=== PATIENT | female | born 1975 | race Caucasian/White ===

== ENCOUNTER 2018-06-08 20:27 | Emergency (ER) | payer OTHER ==
[~2018-06-08] VITALS: Ht 177.8 cm; Wt 99.8 kg
[~2018-06-08 20:27] MED LIST: ABILIFY15 MG PO; AMOXICILLIN875 MG PO; ATIVAN0.5 MG; ATIVAN1 MG PO; AUGMENTIN 875875 MG PO; BACLOFEN 10 MG10 MG PO; BACLOFEN 10MG T10 M1 PO; BENZTROPINE MES1 MG PO; CLARITIN10 MG PO; COLACE100 MG PO; COMBIVENT INH; CYCLOBENZAPRINE10 MG PO; CYMBALTA60 MG PO; DESYREL PO; DESYREL100 MG PO; DESYREL50 MG PO; DILAUDID 4 MG TA4 M1 PO; DILAUDID4 MG PO; ENABLEX15 MG PO; ENOXAPARIN40 MG/0.1 SUBQ; FLEXERIL PO; FLONASE 0.05%50 MCG INH; FUROSEMIDE 40 M40 M1 PO; GABAPENTIN100 MG PO; GLYCOLAX17 GM PO; GOLYTELY4000 ML PO; HYDROCODONE-AP1 EAC6 PO; IBUPROFEN 800800 M1 PO; INDOMETHACIN 2525 MG PO; K-DUR 20 MEQ T20 MEQ PO; KEFLEX500 MG PO; KEPPRA 500 MG500 M1 PO; KLOR-CON 1010 MEQ PO; LACTULOSE10 GM/152; LASIX 40 MG TAB40 M1 PO; LEVOFLOXACIN750 MG PO; LIORESAL 10 MG10 MG PO; MILK OF MA2400 MG/10 PO; MINIPRESS5 MG PO; MORPHINE SULFAT10 M1 PO; MORPHINE SULFAT30 M1 PO; MS CONTIN 30 MG30 M1 PO; MUCINEX DM; NEURONTIN 300300 M1 PO; OXYMORPHONE HCL15 MG PO; PERCOCET 5-3251 EACH PO; PHENERGAN 25 MG25 M1 PO; PRAZOSIN HCL2 MG PO; PRAZOSIN HCL5 MG PO; PREDNISONE 10 M10 MG PO; PROAIR HFA8.5 GM INH; PROTONIX40 M2 PO; SENOKOT-S1 TA1 PO; SEROQUEL XR400 M1 PO; TRAZODONE 150150 M1; TRAZODONE HCL100 MG PO; TYLENOL325 MG PO; UNICOMPLEX M TA1 TA1 PO; VITAMIN B-1100 M1 PO; VITAMIN C500 M1 PO; VITAMIN D 5050000 I1 PO; ZOFRAN ODT4 MG PO
[2018-06-08 21:17] LABS: URINE BILIRUBIN NEGATIVE (Negative); URINE BLOOD NEGATIVE (Negative); URINE CLARITY CLEAR; URINE COLOR YELLOW; URINE GLUCOSE-RANDOM* NEGATIVE (Negative); URINE KETONES NEGATIVE (Negative); URINE LEUKOCYTES-REFLEX NEGATIVE (Negative); URINE NITRITE-REFLEX POSITIVE (Negative); URINE PROTEIN (DIPSTICK) NEGATIVE (Negative); URINE UROBILINOGEN 0.2 E.U./dl (0.2-1.0)
[2018-06-08 21:30] LABS: BACTERIA-REFLEX >30 Many /HPF (None Seen); CASTS None Seen /LPF (None Seen); CRYSTALS None Seen /LPF (None Seen); SQUAMOUS 0-3 Few /LPF (0-3)
[2018-06-08 21:31] LABS: URINE WBC-REFLEX 0-5 Rare /HPF (0-5)
[2018-06-08 21:32] LABS: URINE RBC None Seen /HPF (0-2)
[2018-06-09 01:06] LABS: ABSOLUTE NEUTROPHILS 3.6 thou/uL (1.4-8.2); BASOPHILS 0.4 % (0.0-2.0); EOSINOPHILS 2.1 % (0.0-3.0); HEMATOCRIT 35.6 % (37.0-47.0); HEMOGLOBIN 12.2 gm/dL (12.0-15.0); MCH 33.6 pg (26.0-34.0); MCHC 34.2 g/dL (28.0-37.0); MCV 98.1 fL (80.0-100.0); MONOCYTES 11.6 % (1.0-8.0); PLATELET COUNT 216 thou/uL (150-400); POLYS 54.9 % (36.0-66.0); RBC 3.62 mil/uL (4.20-5.00); RDW 14.1 % (10.5-14.5); WBC 6.6 thou/uL (4.0-11.0)
[2018-06-09 01:12] LABS: CREATININE 0.7 mg/dL (0.6-1.0); POTASSIUM 4.3 mmol/L (3.5-5.1)
[2018-06-09] MEDS ORDERED: SPRINTEC1 EACH PO (01:36)
[2018-06-09 02:05] VITALS: BP 150/83
== END 2018-06-09 02:05 | disposition home or self-care (01) ==
LOC: ER 20:27
PROVIDERS: Emergency Medicine; Nurse Practitioner Family
DX: N93.8 Other specified abnormal uterine and vaginal bleeding (principal); F32.9 Major depressive disorder, single episode, unspecified; M54.9 Dorsalgia, unspecified; Q79.6 Ehlers-Danlos syndromes; G89.29 Other chronic pain; Z98.890 Other specified postprocedural states; Z87.891 Personal history of nicotine dependence; Z91.048 Other nonmedicinal substance allergy status; Z88.2 Allergy status to sulfonamides; Z90.49 Acquired absence of other specified parts of digestive tract